=== PATIENT | male | born 1970 | race Caucasian/White ===

== ENCOUNTER 2023-07-17 23:33 | Emergency (ER) | payer BC ==
[2023-07-17 23:51] LABS: BASOPHILS PERCENT AUTO 0.5 % (0.0-1.0); EOSINOPHILS ABSOLUTE AUTO 0.1 K/mm3 (0.0-0.4); EOSINOPHILS PERCENT AUTO 1.4 % (0.0-6.0); HEMATOCRIT 44.8 % (42.0-52.0); HEMOGLOBIN 15.6 gm/dl (14.0-18.0); IMMATURE GRAN ABSOLUTE AUTO 0.04 K/mm3 (0.00-0.05); IMMATURE GRAN PERCENT AUTO 0.5 % (0.0-0.4); LYMPHOCYTES ABSOLUTE AUTO 1.6 K/mm3 (1.0-4.8); LYMPHOCYTES PERCENT AUTO 18.7 % (24.0-44.0); MEAN CORPUSCULAR HEMOGLOBIN 31.8 pg (28.0-32.0); MEAN CORPUSCULAR HGB CONC 34.8 g/dl (32.0-36.0); MEAN CORPUSCULAR VOLUME 91.4 fl (83.0-99.0); MEAN PLATELET VOLUME 9.5 fl (9.4-12.4); MONOCYTES ABSOLUTE AUTO 0.4 K/mm3 (0.0-0.8); MONOCYTES PERCENT AUTO 4.6 % (0.0-8.0); NEUTROPHILS ABSOLUTE AUTO 6.3 K/mm3 (1.8-7.7); NEUTROPHILS PERCENT AUTO 74.3 % (41.0-71.0); PLATELET COUNT,PLT 209 K/mm3 (150-400); WHITE BLOOD CELL COUNT,WBC 8.45 K/mm3 (3.9-11.3)
[2023-07-18 00:11] LABS: ANION GAP 15.1 (5-15); BLOOD UREA NITROGEN,BUN 8 mg/dL (7-18); CARBON DIOXIDE,CO2 25 mEq/L (21-32); CHLORIDE,CL 97 mEq/L (98-107); GLUCOSE RANDOM 115 mg/dL (70-99); SODIUM,NA 133 mEq/L (136-145)
[2023-07-18 00:12] LABS: ALANINE AMINOTRANSFERASE,ALT 25 U/L (16-63); ALBUMIN 3.7 g/dl (3.4-5.0); ALKALINE PHOSPHATASE 72 U/L (46-116); ASPARTATE AMNIOTRANSFERASE,AST 23 U/L (15-37); BILIRUBIN TOTAL 0.3 mg/dL (0.2-1.0); ESTIMATED GFR 89 mL/min (>60); ETHANOL BLOOD MEDICAL 0.45 gm% (0.00); MAGNESIUM 2.2 mg/dL (1.8-2.4); PROTEIN TOTAL,TP 7.4 g/dl (6.4-8.2)
[2023-07-18 00:14] LABS: POTASSIUM,K 4.1 mEq/L (3.5-5.1)
[2023-07-18 00:18] LABS: BARBITURATE SCREEN,URINE NEGATIVE (CUTOFF=200); BENZODIAZEPINES SCREEN,URINE NEGATIVE (CUTOFF=150); BUPRENORPHINE SCREEN,URINE NEGATIVE (CUTOFF=10); METHADONE SCREEN, URINE NEGATIVE (CUT0FF=200); METHAMPHETAMINES SCREEN, URINE NEGATIVE (CUTOFF=500); OXYCODONE SCREEN,URINE NEGATIVE (CUT0FF=100); THC SCREEN,URINE 20 NG/ML NEGATIVE (CUTOFF=50)
[2023-07-18] MEDS ORDERED: Ondansetron 4 MG/2 ML SDV IVPUSH ONE (00:19)
[2023-07-18] MEDS ORDERED: Lactated Ringers 1,000 ML IV ONE (00:20)
[2023-07-18 00:27] LABS: AMPHETAMINES SCREEN, URINE NEGATIVE (CUTOFF=500)
== END 2023-07-18 10:32 | disposition left against medical advice (07) ==
LOC: JD.ED 23:33
DX: F10.121 Alcohol abuse with intoxication delirium (principal)
CPT/HCPCS: 36415; 71101; 80053; 80306; 80307; 83735; 85025; 96361; 96374; 99284; J2405; J7120